=== PATIENT | female | born 1965 | race Caucasian/White ===

== ENCOUNTER → 2018-05-20 | Outpatient (CLI) | payer BC, OTHER ==
--- NOTE | 2018-05-20 11:25 | EXE ---
[facility] [employer] [place] [address] STRESS ECHOCARDIOGRAM Name: DENA BOWERS Room #: REG [facility] [id number] Admission: 05/20/18 Attend Phys: Kwan Galvez MD Discharge: Date of : 69 Date of Service: 05/20/18 1125 Report #: [id number] THIS REPORT FOR: //name// APPROVED REPORT Study performed: 05/20/2018 10:23:02 Exam: Stress Echocardiogram Indication: Chest pain Patient Location: Out-Patient Stress Nurse: Nicolle Peoples RN Room #: Echo lab 2 Status: routine Ht: 5 ft 4 in HR: 83 bpm BP: 138/92 mmHg Rhythm: NSR Medical History Medical History: HTN Cardiac Risk Factors: FHX of CAD Exercise History: Physically active Procedure The patient underwent an Exercise Stress Test using the Senthil Protocol. Blood pressure, heart rate, and EKG were monitored. An Echocardiogram was performed by vending service technician in four stages in quad fashion. At peak stress, four selected images were obtained and placed side by side with resting images for comparison. Stress Test Details Stress Test: Exercise stress testing was performed using a Senthil protocol. HR Resting HR: 83 bpm Max Heart Rate (APMHR): 170 bpm Max HR Achieved: 187 bpm Target HR (85% APMHR): 144 bpm % of APMHR: 110 Recovery HR: 116 bpm HR response to stress: Normal HR response to stress BP Resting BP: 138/92 mmHg Max BP: 190/92 mmHg Recovery BP: 168/90 mmHg BP response to stress: Normal blood pressure response to [facility] [address] [place] [address] STRESS ECHOCARDIOGRAM Name: DENA BOWERS Room #: REG CL [facility]#: [id number] Admission: 05/20/18 Attend Phys: Kwan Galvez MD Discharge: Date of : 69 Date of Service: 05/20/18 1125 Report #: [id number] stress. ECG Resting ECG: Sinus Rhythm Stress ECG: Sinus Rhythm ST Change: Non-ischemic Clinical Reason for Termination: Maximal effort Exercise duration: 12 min 30 sec Highest Stage Achieved: Stage 5: 5.0 mph at 18% grade. Exercise capacity: 15.3 METs Overall Exercise Capacity for Age: Excellent Pre-Stress Echo The resting Echocardiogram showed normal left ventricular contractility with an estimated Ejection Fraction of about 60%. Normal wall motion in all segments on baseline images. Post-Stress Echo The stress Echocardiogram showed normal left ventricular contractility with an estimated Ejection Fraction of about >70%. Normal augmentation of wall motion in all segments on post stress images. Clinical Normal augmentation of myocardial wall segments using a 17 segment model. No clinical or ECG evidence for ischemia. Conclusion Clinical Response: Non-ischemic Exercise Capacity: Superior Stress ECG Response: Non-ischemic Stress Echo Images: Non-ischemic The left ventricle is normal in size and wall thickness in both the rest and stress images. Other Information Study Quality: Good <Conclusion> [facility] [address] [place] [address] STRESS ECHOCARDIOGRAM Name: DENA BOWERS Room #: REG [facility].#: [id number] Admission: 05/20/18 Attend Phys: Kwan Galvez MD Discharge: Date of : 69 Date of Service: 05/20/18 1125 Report #: [id number] The left ventricle is normal in size and wall thickness in both the rest and stress images. <ELECTRONICALLY SIGNED> By: Kwan Galvez MD 05/20/18 1125 Kwan Galvez MD /INF
== END ==
LOC: CV 04-25 11:16
DX: R07.9 Chest pain, unspecified (principal); I10 Essential (primary) hypertension

== ENCOUNTER → 2018-09-05 | Outpatient (CLI) | payer OTHER | LOC: CAT 14:48 | DX: Z13.6 Encounter for screening for cardiovascular disorders (principal); I25.10 Atherosclerotic heart disease of native coronary artery without angina pectoris; E78.00 Pure hypercholesterolemia, unspecified ==